=== PATIENT | female | born 1985 | race Two or more races ===

== ENCOUNTER → 2016-07-08 10:41 | Outpatient (CLI) | payer SELFPAY | END | disposition home or self-care (01) | LOC: D.LDO 10:41 | DX: O36.8130 Decreased fetal movements, third trimester, not applicable or unspecified (principal); Z3A.32 32 weeks gestation of pregnancy ==

== ENCOUNTER 2016-08-27 05:32 | Inpatient (IN) | payer MEDICAID ==
[~2016-08-27] VITALS: Ht 152.4 cm; Wt 65.8 kg
[2016-08-27] VITALS (15 sets, daily range): BP systolic 90–118; BP diastolic 50–65; Ht 152.4 cm; Wt 65.8 kg
[2016-08-27] MEDS ORDERED: PRENATAL COMPLE1 TAB PO (05:50)
[2016-08-27 06:22] LABS: HEMATOCRIT 37.8 % (36.0-48.0); HEMOGLOBIN 13.1 g/dL (12-16); MCH 32.4 pg (26.0-34.0); MCHC 34.7 g/dL (31.0-37.0); MCV 93.6 fL (80.0-100.0); MEAN PLATELET VOLUME 11.5 fL (7.4-10.4); RBC 4.04 10x6/uL (4.00-5.40); RDW 14.6 % (11.5-14.5)
[2016-08-27 07:17] LABS: APPEARANCE SLT CLOUDY (CLEAR); BACTERIA MANY /hpf (NONE SEEN); BILIRUBIN NEGATIVE (NEGATIVE); COLOR YELLOW (YELLOW); GLUCOSE NEGATIVE (NEGATIVE); KETONE NEGATIVE (NEGATIVE); LEUKOCYTE ESTERASE 1+ (NEGATIVE); MUCUS <1+ /lpf (NONE SEEN); NITRITE NEGATIVE (NEGATIVE); PROTEIN NEGATIVE (NEGATIVE); SPECIFIC GRAVITY 1.015 (1.005-1.020); UROBILINOGEN NORMAL (NORMAL); WHITE CELLS - URINE 0-5 /hpf (0-5)
--- NOTE | 2016-08-27 09:36 | NUR ---
FUNDUS MIDLINE AT THE UMBILICUS. LOCIA MODERATE, RED.
--- NOTE | 2016-08-27 10:00 | NUR ---
RECEIVED PT FROM VIA BED. PT RATING PAIN 2/10 AT INCISION SITE. NS WITH 20UNITS PITOCIN INFUSING VIA PUMP AT 125ML/HR TO RIGHT FOREARM.PHYSICAL ASSESSMENT DONE SEE SHIFT ASSESSMENT. BOWEL SOUNDS HYPOACTIVE IN LOWER QUADRANTS. BIKINI LINE INCISION NOTED TO BE CLEAN DRY AND INTACT WITH STERI STRIPS IN PLACE. FUNDUS FIRM 1/U SCANT RUBRA LOCHIA NOTED ON KIKI PAD. NO CLOTS EXPRESSED WITH MASSAGE. FRESH ICE PACK APPLIED TO INCISION. [address] AND DRAINING TO GRAVITY. SCDS LEGGINGS IN PLACE AND CONNECTED TO PUMP WITH PUMP ON. IS EXPLAINED TO PT AND FAMILY BROUGHT TO BEDSIDE. ORANGE JUICE PROVIDED PER REQUEST.
--- NOTE | 2016-08-27 10:03 | NUR ---
2-WAY LIU DRAINING VIA GRAVITY. UNCLAMPED. YELLOW URINE.
--- NOTE | 2016-08-27 11:15 | NUR ---
PT IN SEMI FOWLERS POSITION INFANT. FUNDUS FIRM U/U. SCANT RUBRA LOCHIA NOTED ON KIKI PAD. PT DENIES PAIN OR NEEDS AT THIS TIME.
--- NOTE | 2016-08-27 12:15 | NUR ---
PT IN HIGH FOWLERS POSITION VISITING WITH FAMILY. PT TILTED TO LEFT SIDE AND COUGHS AND DEEP BREATHES WITH GOOD EFFORT. PT CONTINUES TO RATE PAIN 2/10 AND DENIES FURTHER NEEDS AT THIS TIME.
--- NOTE | 2016-08-27 13:35 | NUR ---
PT IN RIGHT TILT POSITION VISITING WITH FAMILY. FF/U/U; SCANT RUBRA LOCHIA NOTED ON KIKI PAD. NO CLOTS EXPRESSED WITH MASSAGE. FRESH ICE PACK APPLIED TO INCISION. PT TURNED TO LEFT TILT POSITION AND DENIES FURTHER NEEDS AT THIS TIME. PT RATES PAIN 4/10.
--- NOTE | 2016-08-27 13:45 | NUR ---
PT TURNED TO BACK IN SEMI FOWLERS POSITION. 1500MLS EMPTIED FROM LIU. PACIFIER PROVIDED PER REQUEST AND UP TO PT ARMS FOR FEEDING. FAMILY REMAINS IN ROOM. PT RATES PAIN AS4/10 AND DENIES NEED FOR FURTHER MEDICATION.
--- NOTE | 2016-08-27 14:25 | NUR ---
PT VISITS WITH FAMILY. DENIES C/O OR NEEDS.
--- NOTE | 2016-08-27 18:15 | NUR ---
PT IN SEMI FOWLERS POSITION VISITING WITH FAMILY. TOWELS AND CHUX CHANGED. KIKI CARE DONE. LIGHT RUBRA LOCHIA NOTED ON KIKI PAD. CLEAN GOWN APPLIED. FUNDUS REMAINS FIRM. U/U. EXTRA BLANKET PROVIDED PER REQUEST. PT CONTINUES TO RATE PAIN 4/10 AT INCISION SITE.
--- NOTE | 2016-08-27 19:20 | NUR ---
RCVD PT FROM Gricel CASTILLO RN. PT AAOX3 WITH FAMILY VISITING IN ROOM. IN OPEN CRIB AT BEDSIDE. FAMILY ASKED TO STEP OUT FOR ASSESSMENT. ASSESSMENT COMPLETED PER THIS RN AND Yasemin MCMULLEN RN. PT RATES CURRENT PAIN 7/10 AND REPORTS USING SEALING MACHINE OPERATOR NEEDED. BREATH SOUNDS CLEAR & UNLABORED X2, HR-RRR, PPP, BOWEL SOUNDS ACTIVE X4. PIV TO RT FOREARM PATENT WITH NO ERYTHEMA OR EDEMA NOTED TO SITE. NS WITH 20 U PITOCIN INFUSING @ 125ML/HR. DEMEROL SEALING MACHINE OPERATOR BEING USED. FUNDUS IS FIRM, U/2, SCANT LOCHIA RUBRA NOTED ON PERIPAD. BLI C/D/I WITH STERISTRIPS. NO ERYTHEMA OR EDEMA NOTED TO INCISION SITE. SCD'S IN PLACE ON BLE, CONNECTED TO PUMP AND PUMP FUNCTIONING PROPERLY. 175ML CLEAR YELLOW URINE NOTED IN UROMETER. PUMPS CLEARED AT THIS TIME. PT CONSUMED 100% OF MEAL TRAY AND TRAY REMOVED FROM ROOM. POC TO D/C LIU AND IV MEDS DISCUSSED WITH PT PER Yasemin MCMULLEN RN. PT IS AGREEABLE. PT DENIES FURTHER NEEDS AT THIS TIME. BED LOW, WHEELS LOCKED, CL IN REACH, SIDE RAILS UP X2.
--- NOTE | 2016-08-27 19:49 | NUR ---
DR. ORTIZ CALLED ON CELL PHONE AND ORDER RECEIVED.
--- NOTE | 2016-08-27 20:58 | NUR ---
NUMEROUS VISITORS IN ROOM. PT. CHEERFUL . STATES PAIN HAS DECREASED AND SHE RATES A 5 OF 10 ON PAIN SCALE. DENIES ANY NEEDS AT THIS TIME.
--- NOTE | 2016-08-27 21:30 | NUR ---
POC EXPLAINED TO PT. LIU CATH. DISCONTINUED WITH APPROX. 450CC IN DRAINAGE BAG AND URINE METER. IV SALINE LOCKED. PT. DEMONSTATED USE OF INCENTIVE SPIROMETER X3 AND ABLE TO ACHIEVE UP TO 1000 ON METER. ENCOURAGED PT. TO COUGH AND DEEP BREATHE. PT. STATES UNDERSTANDING TO ALL INSTRUCTIONS.
--- NOTE | 2016-08-27 21:40 | NUR ---
ICE CAP REFILLED FOR PT. FOR ABD. CRANBERRY JUICE GIVEN. ABD. INCISION CLEAN AND DRY. VERONICA MYERS SCANT. FAMILY MEMBER STAYING WITH PT. BLANKET AND PILLOW PROVIDED TO HER VISITOR. PT. DENIES ANY FURTHER NEEDS.
--- NOTE | 2016-08-27 23:27 | NUR ---
PT. LYING ON BACK WITH HOB AT 30 DEGREES. AWAKE ALTHOUGH APPEARS DROWSY. STATES PAIN IS AN 8 OF 10 DUE TO INCISIONAL PAIN. DISCUSSED WITH PT. PAIN MEDS ORDERED. PT. STATES SHE WANTS LOWER DOSE OF DEMEROL. VITAL SIGNS OBTAINED. ABD. INCISION CLEAN AND DRY. LOCHIA RUBRA SCANT. SCDS ON AND FUNCTIONAL.
--- NOTE | 2016-08-27 23:32 | NUR ---
DEMEROL 50 MG GIVEN ORDERED. CRANBERRY JUICE PROVIDED TO PT. ENCOURAGED PT. TO COUGH AND DEEP BREATH AND TO CHANGE POSITIONS IN BED. PT. STATES UNDERSTANDING TO ALL.
--- NOTE | 2016-08-28 00:17 | NUR ---
PT RINGS CL. RN TO BEDSIDE. PT REPORTS NEED TO VOID. PT ASSISTED TO SITTING ON SIDE OF BED AND THEN STANDING. PT AMB TO BATHROOM WITH ASSISTANCE PER THIS RN AND Yasemin MCMULLEN RN. STEADY, BUT SLOW GAIT NOTED. PT VOIDS 1000ML BLOOD TINTED URINE WITH 4 PEA SIZE CLOTS NOTED. CLEAN GOWN PROVIDED AT THIS TIME. PERIPAD PLACED AND CLEAN PANTIES ON. PT ASSISTED BACK TO BED PER THIS RN AND FAMILY MEMBER. PT POSITIONS SELF TO LEFT TILT WITHOUT ASSISTANCE. PT DENIES FURTHER NEEDS. FRESH ICE PACK PLACED @ INCISION PER Yasemin MCMULLEN RN.
--- NOTE | 2016-08-28 00:29 | NUR ---
INTO ROOM TO ASSURE PT. COMFORTABLE SINCE TURNING. STATES THAT SHE IS FINE. RATES PAIN A 2 OF 10 AT THIS TIME. FAMILY MEMBER LYING ON SOFA. SCDS ON AND FUNCTIONAL. CURRENTLY POSITIONED WITH PILLOWS.
--- NOTE | 2016-08-28 02:04 | NUR ---
LYING IN RT TILT WITH EYES CLOSED. RESPIRATIONS REGULAR.
--- NOTE | 2016-08-28 02:45 | NUR ---
PT HEARD CRYING AND ASKING ABOUT BABY. INFORMED THAT NBN WAS GOING TO GET INFANT'S WEIGHT AND VITAL SIGNS AND THEN THEY WOULD BRING HIM TO HER. PT. STATES UNDERSTANDING.
[2016-08-28 04:03] VITALS: BP 93/50
--- NOTE | 2016-08-28 04:03 | NUR ---
PT LYING ON BACK, FAMILY AT BEDSIDE, INFANT IN OPEN CRIB. VSS. PT RATES CURRENT PAIN 8/10 @ INCISION. PT REPORTS THAT "PAIN PILL SHE GAVE ME EARLIER HELPED SOME." WILL RETURN WITH MEDS. PT DENIES FURTHER NEEDS.
--- NOTE | 2016-08-28 04:10 | NUR ---
DEMEROL 50MG X1 TAB GIVEN FOR PAIN RATED 8/10 @ INCISION. PT DENIES FURTHER NEEDS AT THIS TIME. WILL CONT. TO MONITOR.
--- NOTE | 2016-08-28 04:55 | NUR ---
LYING ON BACK WITH EYES CLOSED. SLEEPING IN OPEN CRIB AT BEDSIDE.
--- NOTE | 2016-08-28 06:06 | NUR ---
LYING IN BED ON BACK. RESPIRATIONS REGULAR. AWAKE AT PRESENT. IN OPEN CRIB AT BEDSIDE. DENIES ANY NEEDS.
[2016-08-28 06:14] LABS: RAPID PLASMA REAGIN Non Reactive (Non Reactive)
[2016-08-28 06:18] LABS: HEMATOCRIT 35.9 % (36.0-48.0); HEMOGLOBIN 12.6 g/dL (12-16); MCH 32.6 pg (26.0-34.0); MCHC 35.1 g/dL (31.0-37.0); MEAN PLATELET VOLUME 12.1 fL (7.4-10.4); RBC 3.86 10x6/uL (4.00-5.40); RDW 14.5 % (11.5-14.5)
[2016-08-28 06:22] LABS: WBC 15.9 10x3/uL (4.8-10.8)
--- NOTE | 2016-08-28 07:15 | NUR ---
TO PT'S ROOM, AM ASSESSMENT DONE. PT DENIES HEAVY BLEEDING OR PASSING CLOTS. PT HAS STERISTRIPS OVER INCISION, C/D/I. FUNDUS FIRM, U/1. SCANT RUBRA LOCHIA NOTED. PT'S FAMILY MEMBER IN ROOM TENDING TO BABY. DIETARY HAS SERVED REGULAR DIET. PT DENIES OTHER NEEDS AT THIS TIME. SR UP X 2, CALL LIGHT AND PHONE WITHIN REACH.
[2016-08-28 07:25] VITALS: BP 94/50
--- NOTE | 2016-08-28 07:45 | OP ---
PATIENT NAME: BEAU VAN MEDICAL RECORD: [id number] :87 LOCATION:[id number] ADMISSION DATE:08/27/16 SURGEON: JENELLE JIMENEZ MD DATE OF OPERATION: 08/27/2016 PREOPERATIVE DIAGNOSIS: Previous section, 39 weeks gestational age. POSTOPERATIVE DIAGNOSIS: Previous section, 39 weeks gestational age. PROCEDURE: Repeat low transverse section and excision of old scar. SURGEON: Jenelle Jimenez MD ANESTHESIA: Spinal. FINDINGS: A 7 pound 15 ounce male infant with 9 and 9 Apgars in cephalic presentation with clear fluid. ESTIMATED BLOOD LOSS: 800 cc. COMPLICATIONS OF SURGERY: None. OPERATIVE NOTE: The patient was taken to the OR and under adequate spinal anesthesia, prepped and draped in the usual manner for abdominal procedures. A transverse incision was made in the lower abdomen, excising her old section Pfannenstiel scar. This incision was then extended through subcutaneous tissue, fascia and muscles were divided in the midline. Peritoneum entered bluntly and this incision extended from the symphysis pubis to within 6 cm of the umbilicus, avoiding the bladder and abdominal organs. A transverse incision was then made in the lower uterine segment and was delivered through the uteroabdominal incision with the aid of a vacuum applied to the vertex. Infant was thoroughly suctioned, cord doubly clamped and ligated and handed to waiting nursery personnel. The uterus was closed in 2 layers, first layer running interlocking #1 chromic suture. The final layer, a running #1 chromic suture. Pelvis was copiously irrigated and suctioned and hemostasis was confirmed. Francoise was applied to the lower uterine segment incision. The fascial layer closed in a running noninterlocking #1 PDS loop suture. Skin incision reapproximated in 2 layers with subcutaneous 2-0 plain gut suture and a subcuticular 2-0 plain gut suture. Dermabond was applied. A Steri-Strip dressing was applied and the patient went to the recovery area in good condition. TRANSINT:[id number] Voice Confirmation ID: [id number] DOCUMENT ID: [id number] JENELLE JIMENEZ MD at 0745 CC: [id number] DICTATION DATE: 08/27/16 09 DATA CONTROL CLERK SUPERVISOR: 08/27/16 1650 ADM IN [facility] [address] [facility], [facility]
--- NOTE | 2016-08-28 07:50 | NUR ---
DR. JIMENEZ TO DESK, PROGRESS REPORT GIVEN. VERBAL ORDER RECEIVED FOR IBUPROFEN 600 MG. SEE EMAR FOR ALL MEDS ADM BY THIS RN. TO ROOM TO SPEAK WITH PT.
--- NOTE | 2016-08-28 08:05 | NUR ---
PT CALLS OUT CHARGER TESTER LIGHT REQUESTING PAIN MEDICATION. PT WISHES TO GET UP TO THE BATHROOM FIRST. SCD'S REMOVED. PT AMB TO BR, GAIT SLOW, BUT STEADY. PT VOIDS 500 ML'S YELLOW URINE. PERICARE DONE WITH WARM WET WASHCLOTHS, PERIPANTIES, AND PAD ON. BED LINENS CHANGED. PT THEN BACK TO BED. SR UP X2, CALL LIGTH AND PHONE WITHIN REACH. PT'S FAMILY MEMBER REMAINS IN ROOM TENDING TO AND PT. IN CRIB, SLEEPING. NO DISTRESS NOTED. SL REMOVED WITH CATH INTACT. SR UP X2, CALL LIGHT AND PHONE WITHIN REACH. PT DENIES OTHER NEEDS AT THIS TIME.
--- NOTE | 2016-08-28 09:00 | NUR ---
PT UP TO SHOWER, CLEAN GOWN AND LINENS PROVIDED. PT DENIES OTHER NEEDS AT THIS TIME.
--- NOTE | 2016-08-28 10:40 | NUR ---
PT SITTING UP IN THE BED, HOLDING INFANT. PT DENIES NEEDS AT THIS TIME. SR UP X 2, CALL LIGHT AND PHONE WITHIN REACH.
--- NOTE | 2016-08-28 12:15 | NUR ---
PT IS SITTING UP IN THE BED. DENIES NEEDING PAIN MEDICATION AT THIS TIME. PT HAS REGULAR LUNCH TRAY SERVED BY DIETARY. ICE WATER SERVED AT PT'S REQUEST. PT DENIES ALL OTHER NEEDS. SR UP X 2, CALL LIGHT AND PHONE WITHIN REACH.
--- NOTE | 2016-08-28 13:45 | NUR ---
TO ROOM, PT IS RESTING WITH EYES CLOSED, IN BED. SR UP X2, CALL LIGHT AND PHONE WITHIN REACH. PT'S MOTHER ALSO RESTING ON COUCH. LIGHTS ARE DIMMED IN THE ROOM. PT NOT DISTURBED. SR UP X 2, CALL LIGHT AND PHONE WITHIN REACH.
--- NOTE | 2016-08-28 14:24 | NUR ---
PT REQUESTS AND RECEIVES CRANBERRY JUICE. DENIES C/O PAIN.
--- NOTE | 2016-08-28 17:00 | NUR ---
DIETARY SERVES REGULAR SUPPER TRAY. TO ROOM, PT IS AMBULATORY IN ROOM. PT HAS BEEN UP TO THE BATHROOM AD ROMI. DENIES NEEDS, DENIES NEEDING PAIN MEDICATION AT THIS TIME. SRUP X2, CALL LIGHT AND PHONE WITHIN REACH.
[2016-08-28 19:13] VITALS: BP 103/51
--- NOTE | 2016-08-28 19:13 | NUR ---
INTO PT. ROOM FOR ASSESSMENT. PT. CALLED PRIOR TO THIS SHIFT START REQUESTING PAIN MED. PT. RATES PAIN A 8 OF 10 ON PAIN SCALE AND STATES IS INCISIONAL AND CONSTANT. PAIN MED GIVEN ORDERED. PT. REQUESTED BOTH DEMEROL AND IBUPROFEN WAS GIVEN EARLIER IN DAY. BOWEL SOUNDS AUDIBLE AND BREATH SOUNDS CLEAR. ABD. INCISION CLEAN AND DRY. DENIES ANY DISCOMFORT IN LOWER EXTREMITIES. ENCOURAGED PT. TO WALK IN HALLWAY PRIOR TO GOING TO SLEEP FOR THE NIGHT. PT. REPORTS THAT SHE IS PASSING GAS.SIDE RAILS UP X 2 AND CALL LIGHT WITHIN REACH.
--- NOTE | 2016-08-28 19:16 | NUR ---
PT. REPORTS THAT IN FEEDING WELL TODAY WITH BOTH BREAST AND FORMULA. PRESENTLY IN OPEN CRIB AT BEDSIDE SLEEPING. FAMILY IN ROOM VISITING.
--- NOTE | 2016-08-28 19:26 | NUR ---
PT. IN HALLWAY WITH FOB AT SIDE AND WALKED LENGTH OF HALLWAY IN L&D. GAIT STEADY ALTHOUGH SLOW AND STANDING UPRIGHT. DENIES ANY DIZZINESS.
--- NOTE | 2016-08-28 20:25 | NUR ---
FEEDING AT PRESENT.RATES PAIN A 5 OF 10 AND STATES HAS IMPROVED. VISITORS AT BEDSIDE. PT. DENIES ANY NEEDS AT THIS TIME.
--- NOTE | 2016-08-28 21:25 | NUR ---
LYING IN BED WITH HOB AT 30 DEGREES TALKING ON PHONE. PT. STATES SHE IS FINE AND DOES NOT HAVE ANY NEEDS.
[2016-08-28 23:04] VITALS: BP 91/51
--- NOTE | 2016-08-28 23:04 | NUR ---
LYING ON LT SIDE WITH BESIDE PT. INFANT SLEEPING AT PRESENT. RATES PAIN A 1 OF 10 ON PAIN SCALE. DENIES ANY NEEDS AT THIS TIME.
--- NOTE | 2016-08-29 01:15 | NUR ---
SITTING UP IN BED TENDING TO THAT IS IN OPEN CRIB. DENIES ANY NEEDS.
--- NOTE | 2016-08-29 03:59 | NUR ---
LYING ON BACK WITH EYES CLOSED. RESPIRATIONS REGULAR. IN OPEN CRIB AT BEDSIDE. SLEEPING AT PRESENT.
--- NOTE | 2016-08-29 05:26 | NUR ---
LYING ON BACK WITH EYES CLOSED. RESPIRATIONS REGULAR. IN OPEN CRIB AT BEDSIDE. FOB IN ROOM WITH PT.
--- NOTE | 2016-08-29 06:43 | NUR ---
FEEDING AT PRESENT. DENIES ANY NEEDS AT THIS TIME.
[2016-08-29 07:15] VITALS: BP 91/50
--- NOTE | 2016-08-29 07:15 | NUR ---
assessment done. sitting up in bed talking with family. verbal responses appro to questions. up and about in room at will. abd soft. bikini line incision with steri strips- cd&i. small lochia noted on pad. rates pain a 4 when questioned. states she would like something for pain. ice water given.
[2016-08-29] MEDS ORDERED: MEPERIDINE HCL50 MG PO (08:13)
[2016-08-29] MEDS ORDERED: IBUPROFEN600 MG PO (08:14)
--- NOTE | 2016-08-29 08:15 | NUR ---
PT UP TO SHOWER.
--- NOTE | 2016-08-29 08:35 | NUR ---
T-DAP INFO SHEET GIVEN TO PT- PT STATES SHW WOULD LIKE T-DAP VACCINE.
--- NOTE | 2016-08-29 09:24 | NUR ---
DISCHARGE INST VERBAL AND WRTTEN GIVEN. PRESCRIPTIONS GIVEN ALONG WITH PT MED REC AND DRUG DATA INFO SHEETS. PT HEALTH SUMMARY GIVEN. PFW PP INST GIVEN. POST OP INST GIVEN. OTHER DISCHARGE INST GIVEN.
--- NOTE | 2016-08-29 09:50 | NUR ---
pt states is ready to go home. pt to auto via w/c per volunteer with and family.
== END 2016-08-29 09:50 | disposition home or self-care (01) | DRG 766 ==
LOC: D.LD 05:32
PROVIDERS: ADMIT Obstetrics & Gynecology
PROC: 10D00Z1 Extraction of Products of Conception, Low, Open Approach (ICD-10-PCS; principal; 2016-08-27 07:30)
DX: O34.219 Maternal care for unspecified type scar from previous cesarean delivery (principal); Z3A.39 39 weeks gestation of pregnancy; Z37.0 Single live birth

== ENCOUNTER → 2018-07-22 09:19 | Outpatient (CLI) | payer SELFPAY ==
[2016-08-27 05:50] VITALS: BMI 28.3
[~2018-07-22 09:19] MED LIST: IBUPROFEN600 MG PO; MEPERIDINE HCL50 MG PO; PRENATAL COMPLE1 TAB PO
[2018-07-22 11:00] LABS: BASOPHILS 0.6 % (0-2); EOSINOPHILS 1.7 % (0-7); HEMATOCRIT 37.3 % (36.0-48.0); HEMOGLOBIN 12.8 g/dL (12-16); IMMATURE GRANULOCYTES 0.2 % (0-5); LYMPHOCYTES 34.9 % (15-50); MCH 31.5 pg (26.0-34.0); MCHC 34.3 g/dL (31.0-37.0); MCV 91.9 fL (80.0-100.0); MEAN PLATELET VOLUME 11.1 fL (7.4-10.4); MONOCYTES 7.7 % (2-11); NEUTROPHILS 54.9 % (40-80); RBC 4.06 10x6/uL (4.00-5.40); RDW 13.3 % (11.5-14.5); WBC 4.7 10x3/uL (4.8-10.8)
[2018-07-22 11:14] LABS: PLATELET COUNT 200 10x3/uL (130-400)
[2018-07-22 11:20] LABS: CALCIUM 8.5 mg/dL (8.5-10.1); T4 THYROXIN - FREE 0.78 ng/dL (0.76-1.46); T4 THYROXINE 6.7 ug/dL (4.7-13.3); THYROID STIMULATING HORMONE 2.03 uIU/mL (0.36-3.74)
== END | disposition home or self-care (01) ==
LOC: D.LABREF 09:19
PROVIDERS: ATTEND Internal Medicine
DX: R11.2 Nausea with vomiting, unspecified (principal); R63.4 Abnormal weight loss